=== PATIENT | male | born 1955 | race Two or more races ===

== ENCOUNTER 2020-05-27 16:27 | Inpatient (IN) | payer OTHER ==
[~2020-05-27] VITALS: Ht 154.9 cm; Wt 66.0 kg
[2020-05-27 17:58] LABS: Basophils # (auto) 0.1 10 ^3/uL (0-0.2); Basophils % (auto) 0.9 % (0.0-2.0); Eosinophils # (auto) 0.1 10 ^3/uL (0-0.8); Eosinophils % (auto) 2.2 % (0.0-7.0); Hematocrit 38.5 % (41.0-53.0); Hemoglobin 12.7 g/dL (13.5-17.5); Lymphocytes # (auto) 2.3 10 ^3/uL (0.4-5.4); Mean Corpuscular Hgb Conc. 32.9 g/dL (32.0-36.0); Mean Corpuscular Volume 88.2 fL (80.0-100.0); Monocytes # (auto) 0.6 10 ^3/uL (0-1.3); Neutrophils # (auto) 2.8 10 ^3/uL (1.6-8.6); Neutrophils % (auto) 46.9 % (37.0-80.0); Nucleated Red Blood Cells % 0.1 %; Platelet Count (auto) 170 10^3/uL (140-450); Red Blood Cells 4.36 10^6/uL (4.5-5.90); Red Cell Distribution Width 14.1 % (11.8-14.3); White Blood Cell 5.9 10^3/uL (4.4-10.8)
[2020-05-27] MEDS ORDERED: MORPHINE SULF INJ 2 MG/ML SYRINGE 1ML IV PRN (18:00)
[2020-05-27] MEDS ORDERED: ACETAMINOPHEN 325 MG TAB PO PRN (18:00)
[2020-05-27] MEDS ORDERED: LORazepam 0.5 MG TAB PO PRN (18:00)
[2020-05-27] MEDS ORDERED: DEXTROSE (50%) 50ML SYRG IV PRN (18:00)
[2020-05-27] MEDS ORDERED: ONDANSETRON HCL 4 MG/2 ML VIAL IV PRN (18:00)
[2020-05-27] MEDS ORDERED: DOCUSATE SOD 100 MG CAP PO PRN (18:00)
[2020-05-27 18:12] LABS: INR 0.96 (0.9-1.15); Partial Thromboplastin Time 25.9 sec (23.0-31.2)
[2020-05-27] MEDS ORDERED: MORPHINE SULF INJ 2 MG/ML SYRINGE 1ML IV ONE (18:15)
[2020-05-27] MEDS ORDERED: ONDANSETRON HCL 4 MG/2 ML VIAL IV ONE (18:15)
[2020-05-27 18:18] LABS: Alanine Aminotransferase 43 U/L (16-61); Albumin 4.2 g/dL (3.4-5.0); Anion Gap 5 (5-15); Aspartate Aminotransferase 26 U/L (15-37); BUN/Creatinine Ratio 25.5; Blood Urea Nitrogen 25 mg/dL (7-18); Calcium 8.8 mg/dL (8.5-10.1); Carbon Dioxide 27 mmol/L (21-32); Chloride 111 mmol/L (98-107); GFR African American 99 mL/min; GFR Non-African American 82 mL/min; Glucose 97 mg/dL (74-106); Sodium 143 mmol/L (136-145)
[2020-05-27 18:28] LABS: Alkaline Phosphatase 84 U/L (45-117); Bilirubin, Total 0.8 mg/dL (0.2-1.0); Total Protein 7.2 g/dL (6.4-8.2)
[2020-05-27 20:00] VITALS: BP 153/75
[2020-05-27] MEDS: ACCU-CHEK COMFORT CURVE STRIP VI SCH ×2 (20:00→23:06)
[2020-05-27] MEDS: InsuLIN REG 1unit/0.01ml Soln (100units/ml) SC SCH ×2 (20:00→23:06)
--- NOTE | 2020-05-27 20:00 | NUR ---
MS admit from [facility] admitted to tele/MS. Patient oriented to EVANGELINA HUBBARD, RN primary RN, unit, room, bed, and unit policies regarding patient care and visiting hours. Patient weighed by bedscale and encouraged to call if they need something. All questions and concerns addressed, patient verbalized understanding.
[2020-05-27 22:00] VITALS: BP 153/75
[2020-05-28] MEDS ORDERED: IOHEXOL 350 MG/ML 100ML IJ ONE (00:58)
[2020-05-28] MEDS ORDERED: LISI-646 PO (02:43)
[2020-05-28] MEDS ORDERED: METF-370 PO (02:44)
[2020-05-28] MEDS ORDERED: INFLUENZA QUAD 2020-2021 0.5 ML SYRG IM ONE (02:45)
[2020-05-28] MEDS ORDERED: SIMV-8 PO (02:45)
[2020-05-28] MEDS: ACCU-CHEK COMFORT CURVE STRIP VI SCH ×5 (04:00→19:50)
[2020-05-28] MEDS: InsuLIN REG 1unit/0.01ml Soln (100units/ml) SC SCH ×5 (04:00→19:51)
[2020-05-28 04:53] LABS: Urine Amorphous Crystal FEW /hpf (None Seen); Urine Bacteria FEW /hpf (None Seen); Urine Blood Negative /uL (Negative); Urine Mucus FEW (None Seen); Urine Specific Gravity 1.018 (1.001-1.035); Urine WBC <1 /hpf (0 - 3)
[2020-05-28 05:00] VITALS: BP 154/76
[2020-05-28 06:07] LABS: Basophils # (auto) 0 10 ^3/uL (0-0.2); Basophils % (auto) 0.6 % (0.0-2.0); Eosinophils # (auto) 0.1 10 ^3/uL (0-0.8); Hematocrit 39.4 % (41.0-53.0); Hemoglobin 12.8 g/dL (13.5-17.5); Lymphocytes # (auto) 2.5 10 ^3/uL (0.4-5.4); Lymphocytes % (auto) 42.1 % (10.0-50.0); Mean Corpuscular Hemoglobin 28.7 pg (28.0-32.0); Mean Corpuscular Hgb Conc. 32.5 g/dL (32.0-36.0); Mean Corpuscular Volume 88.4 fL (80.0-100.0); Monocytes # (auto) 0.6 10 ^3/uL (0-1.3); Neutrophils # (auto) 2.7 10 ^3/uL (1.6-8.6); Neutrophils % (auto) 45.3 % (37.0-80.0); Nucleated Red Blood Cells % 0.1 %; Platelet Count (auto) 157 10^3/uL (140-450); Red Blood Cells 4.46 10^6/uL (4.5-5.90); Red Cell Distribution Width 14.3 % (11.8-14.3)
[2020-05-28 06:42] LABS: Potassium 3.9 mmol/L (3.5-5.1)
[2020-05-28 07:19] LABS: BUN/Creatinine Ratio 27.4; Calcium 8.2 mg/dL (8.5-10.1)
--- NOTE | 2020-05-28 07:35 | NUR ---
Closing note Endorsed care to day shift RN. NO sob or distress noted.
[2020-05-28 09:00] VITALS: BP 159/76
[2020-05-28] MEDS: HYDROcodone-ACET 5/325MG TAB PO PRN (12:09)
[2020-05-28 13:00] VITALS: BP 145/86
[2020-05-28] MEDS ORDERED: VANCOMYCIN PER PHARMACY 0 MG IV SCH (15:30)
[2020-05-28] MEDS ORDERED: cefTRIAXone 1GM/50ML D5W 50 ML IV ONE (15:30)
[2020-05-28] MEDS: VANCOMYCIN 1GM/250ML 250 ML IV SCH (16:00)
[2020-05-28 17:00] VITALS: BP 136/76
--- NOTE | 2020-05-28 19:20 | NUR ---
Opening Shift Note Assumed care of patient, awake and alert. No S/S of distress/SOB or pain. Pt states that LLE is feeling better tonight and the pain medication helped. Safety measures in place, bed in lowest locked position, bed rails raised x2, call light within reach. All needs addressed at this time. Instructed on POC and to call for assist PRN, will continue to monitor for changes Q1hr and PRN.
--- NOTE | 2020-05-28 19:38 | NUR ---
PT AMBULATING WITHOUT DIFFICULTY DENIES ANY NEEDS. NO ADDITIONAL SWELLING TO LLE. EATING ET DRINKING WELL. VOIDING WITHOUT DIFFICULTY.
[2020-05-28 21:48] VITALS: BP 155/73
[2020-05-29] MEDS: ACCU-CHEK COMFORT CURVE STRIP VI SCH ×4 (00:12→12:00)
[2020-05-29] MEDS: InsuLIN REG 1unit/0.01ml Soln (100units/ml) SC SCH ×4 (04:00→12:00)
[2020-05-29] MEDS: HYDROcodone-ACET 5/325MG TAB PO PRN (04:00)
[2020-05-29] MEDS: VANCOMYCIN 1GM/250ML 250 ML IV SCH (04:00)
[2020-05-29 05:00] VITALS: BP 150/72
[2020-05-29 06:52] VITALS: BP 138/79
[2020-05-29 07:22] LABS: Partial Thromboplastin Time 26.5 sec (23.0-31.2)
[2020-05-29 07:34] LABS: Albumin 3.6 g/dL (3.4-5.0); BUN/Creatinine Ratio 20.2; Bilirubin, Total 0.8 mg/dL (0.2-1.0); CRP High Sensitivity 0.12 mg/dL (< 0.3); Calcium 8.4 mg/dL (8.5-10.1); Potassium 4.1 mmol/L (3.5-5.1); Total Protein 6.7 g/dL (6.4-8.2)
[2020-05-29 08:00] VITALS: BP 145/72
[2020-05-29] MEDS ORDERED: cefTRIAXone 1GM/50ML D5W 50 ML IV SCH (09:00)
[2020-05-29 12:00] VITALS: BP 146/70
[2020-05-29] MEDS ORDERED: CEPH-37 PO (15:19)
[2020-05-29] MEDS ORDERED: IBUP600T27 PO (15:19)
[2020-05-29 17:00] VITALS: BP 142/69
--- NOTE | 2020-05-29 18:34 | NUR ---
Discharge instructions given as ordered. Encourage to follow up with PMD as instructed. All questions and concerns addressed. Patient verbalized understanding. Medication reconciliation form completed and copy given to patient. IV removed with catheter intact, pressure dressing applied, Patient taken to vehicle via wheelchair with all personal belongings, accompanied by staff and family member. No distress noted at time of departure.
== END 2020-05-29 17:40 | disposition home or self-care (01) | DRG 603 ==
LOC: ER 16:32 → OVERFLOW 16:33 → WEST WING 20:04
PROVIDERS: ADMIT Hospitalist; ATTEND Hospitalist
DX: L03.116 Cellulitis of left lower limb (principal); E11.65 Type 2 diabetes mellitus with hyperglycemia; E66.9 Obesity, unspecified; I10 Essential (primary) hypertension; Z68.27 Body mass index [BMI] 27.0-27.9, adult; Z79.899 Other long term (current) drug therapy
CPT/HCPCS: 36415; 71045; 73502; 73562; 75635; 80048; 80053; 80061; 81001; 82962; 83036; 83880; 84484; 85025; 85610; 85730; 86141; 93926; 93971; 97116; 97163; 97530; G0378; J0696

== ENCOUNTER 2021-02-09 13:52 | Inpatient (IN) | payer OTHER ==
[~2021-02-09] VITALS: Ht 162.6 cm; Wt 66.5 kg
[~2021-02-09 13:52] MED LIST: CEPH-37 PO; IBUP600T27 PO; LISI20TA28 PO; METF-370 PO; SIMV-8 PO
[2021-02-09 15:09] LABS: Basophils # (auto) 0 10 ^3/uL (0-0.2); Basophils % (auto) 0.2 % (0.0-2.0); Eosinophils # (auto) 0 10 ^3/uL (0-0.8); Eosinophils % (auto) 0.2 % (0.0-7.0); Hematocrit 44.9 % (41.0-53.0); Hemoglobin 14.8 g/dL (13.5-17.5); Lymphocytes # (auto) 2.2 10 ^3/uL (0.4-5.4); Mean Corpuscular Hemoglobin 29.4 pg (28.0-32.0); Mean Corpuscular Volume 89.3 fL (80.0-100.0); Monocytes # (auto) 1.4 10 ^3/uL (0-1.3); Neutrophils % (auto) 73.6 % (37.0-80.0); Red Blood Cells 5.03 10^6/uL (4.5-5.90); Red Cell Distribution Width 13.6 % (11.8-14.3); White Blood Cell 13.7 10^3/uL (4.4-10.8)
[2021-02-09 15:32] LABS: Albumin 3.2 g/dL (3.4-5.0); Anion Gap 7 (5-15); Blood Urea Nitrogen 34 mg/dL (7-18); Calcium 8.3 mg/dL (8.5-10.1); Carbon Dioxide 28 mmol/L (21-32); Chloride 102 mmol/L (98-107); Glucose 118 mg/dL (74-106); Lipase 89 U/L (73-393); Magnesium 2.3 mg/dL (1.6-2.6); Potassium 4.2 mmol/L (3.5-5.1); Sodium 137 mmol/L (136-145)
[2021-02-09 15:34] LABS: BUN/Creatinine Ratio 26.6; GFR African American 72 mL/min; GFR Non-African American 60 mL/min
[2021-02-09 15:39] LABS: Alanine Aminotransferase 45 U/L (16-61); Alkaline Phosphatase 71 U/L (45-117); Aspartate Aminotransferase 9 U/L (15-37); Bilirubin, Total 0.7 mg/dL (0.2-1.0); Total Protein 7.3 g/dL (6.4-8.2)
[2021-02-09 18:08] LABS: Urine Bacteria NONE SEEN /hpf (None Seen); Urine Blood Negative /uL (Negative); Urine Mucus FEW (None Seen); Urine WBC <1 /hpf (0 - 3)
[2021-02-09] MEDS ORDERED: ACETAMINOPHEN 325 MG TAB PO ONE (18:45)
[2021-02-09] MEDS ORDERED: SODIUM CHLORIDE 0.9% 1,000 ML IV ONE (19:00)
[2021-02-09] MEDS ORDERED: SODIUM CHLORIDE 0.9% 1,950 ML IV ONE (19:00)
[2021-02-09] MEDS ORDERED: IOHEXOL 300 MG/ML 100ML BOTTLE IJ ONE (19:05)
[2021-02-09] MEDS: PIPERACILLIN-TAZO 4.5GM 100 ML IV SCH (21:26)
[2021-02-09] MEDS ORDERED: DEXTROSE (50%) 50ML SYRG IV PRN (22:45)
[2021-02-09] MEDS ORDERED: HYDROcodone-ACET 5/325MG TAB PO PRN (22:45)
[2021-02-09] MEDS ORDERED: MORPHINE SULFATE 4 MG/ML SYR/VIAL IV PRN (22:45)
[2021-02-09] MEDS ORDERED: ONDANSETRON HCL 4 MG/2 ML VIAL IV PRN (22:45)
[2021-02-09] MEDS ORDERED: NITROGLYCERIN 0.4 MG SL TAB SL PRN (22:45)
[2021-02-09] MEDS ORDERED: ACETAMINOPHEN 325 MG TAB PO PRN (22:45)
[2021-02-09] MEDS ORDERED: TEMAZEPAM 15 MG CAP PO PRN (22:45)
[2021-02-10] MEDS: SODIUM CHLORIDE 0.9% 1,000 ML IV SCH ×2 (00:33→15:25)
[2021-02-10 01:00] VITALS: BP 158/67
[2021-02-10] MEDS: PIPERACILLIN-TAZO 4.5GM 100 ML IV SCH ×3 (04:49→18:29)
[2021-02-10 05:00] VITALS: BP 154/71
[2021-02-10] MEDS: InsuLIN REG 1unit/0.01ml Soln (100units/ml) SC SCH ×4 (06:35→21:18)
[2021-02-10] MEDS: ACCU-CHEK COMFORT CURVE STRIP VI SCH ×4 (06:36→21:06)
[2021-02-10 07:32] LABS: Basophils # (auto) 0 10 ^3/uL (0-0.2); Basophils % (auto) 0.3 % (0.0-2.0); Eosinophils # (auto) 0 10 ^3/uL (0-0.8); Eosinophils % (auto) 0.4 % (0.0-7.0); Hematocrit 37.6 % (41.0-53.0); Hemoglobin 12.7 g/dL (13.5-17.5); Lymphocytes # (auto) 1.6 10 ^3/uL (0.4-5.4); Lymphocytes % (auto) 14.2 % (10.0-50.0); Mean Corpuscular Hemoglobin 29.9 pg (28.0-32.0); Mean Corpuscular Hgb Conc. 33.7 g/dL (32.0-36.0); Mean Corpuscular Volume 88.6 fL (80.0-100.0); Monocytes % (auto) 8.7 % (0.0-12.0); Neutrophils # (auto) 8.4 10 ^3/uL (1.6-8.6); Neutrophils % (auto) 76.4 % (37.0-80.0); Red Blood Cells 4.24 10^6/uL (4.5-5.90); Red Cell Distribution Width 13.5 % (11.8-14.3)
[2021-02-10 07:42] LABS: Albumin 2.4 g/dL (3.4-5.0); Calcium 7.7 mg/dL (8.5-10.1); Potassium 3.9 mmol/L (3.5-5.1)
[2021-02-10 07:47] LABS: BUN/Creatinine Ratio 24.2; Bilirubin, Total 0.8 mg/dL (0.2-1.0); Total Protein 5.9 g/dL (6.4-8.2)
[2021-02-10 09:00] VITALS: BP 146/75
[2021-02-10] MEDS: FAMOTIDINE (10MG/ML) 2ML VL IV SCH ×2 (10:54→21:06)
[2021-02-10 13:00] VITALS: BP 155/78
[2021-02-10 17:00] VITALS: BP 154/76
[2021-02-10 22:00] VITALS: BP 149/63
[2021-02-11] MEDS: PIPERACILLIN-TAZO 4.5GM 100 ML IV SCH ×2 (02:41→11:05)
[2021-02-11 05:00] VITALS: BP 155/75
[2021-02-11] MEDS: InsuLIN REG 1unit/0.01ml Soln (100units/ml) SC SCH ×2 (06:36→11:17)
[2021-02-11] MEDS: ACCU-CHEK COMFORT CURVE STRIP VI SCH ×2 (06:37→11:17)
[2021-02-11 06:47] LABS: Basophils # (auto) 0 10 ^3/uL (0-0.2); Basophils % (auto) 0.3 % (0.0-2.0); Eosinophils # (auto) 0.1 10 ^3/uL (0-0.8); Eosinophils % (auto) 1.5 % (0.0-7.0); Hematocrit 37.3 % (41.0-53.0); Hemoglobin 12.4 g/dL (13.5-17.5); Lymphocytes # (auto) 2.1 10 ^3/uL (0.4-5.4); Lymphocytes % (auto) 24.8 % (10.0-50.0); Mean Corpuscular Hemoglobin 29.7 pg (28.0-32.0); Mean Corpuscular Hgb Conc. 33.3 g/dL (32.0-36.0); Mean Corpuscular Volume 89.4 fL (80.0-100.0); Monocytes # (auto) 0.7 10 ^3/uL (0-1.3); Monocytes % (auto) 8.1 % (0.0-12.0); Neutrophils # (auto) 5.6 10 ^3/uL (1.6-8.6); Neutrophils % (auto) 65.3 % (37.0-80.0); Red Blood Cells 4.17 10^6/uL (4.5-5.90); Red Cell Distribution Width 13.3 % (11.8-14.3); White Blood Cell 8.6 10^3/uL (4.4-10.8)
[2021-02-11 07:10] LABS: Albumin 2.3 g/dL (3.4-5.0); BUN/Creatinine Ratio 12.2; Calcium 8.2 mg/dL (8.5-10.1); Potassium 4.1 mmol/L (3.5-5.1)
[2021-02-11 07:13] LABS: Bilirubin, Total 0.6 mg/dL (0.2-1.0); Total Protein 5.9 g/dL (6.4-8.2)
[2021-02-11 09:07] VITALS: BP 154/71
[2021-02-11] MEDS: SODIUM CHLORIDE 0.9% 1,000 ML IV SCH (09:18)
[2021-02-11] MEDS: FAMOTIDINE (10MG/ML) 2ML VL IV SCH (09:18)
[2021-02-11 10:00] LABS: Hepatitis B Surface Antibody Negative
[2021-02-11 10:39] LABS: Hepatitis A Total Antibody Positive
[2021-02-11 13:00] VITALS: BP 162/79
[2021-02-11] MEDS ORDERED: GADOTERATE MEG 10 MMOL/20ml INJ (0.5MMOL/ml) IV ONE (14:00)
[2021-02-11 14:12] VITALS: BP 162/79
[2021-02-11 14:54] LABS: Hepatitis B Core Total AB Negative; Hepatitis B Surface Antigen Negative (Negative); Hepatitis C Antibody Negative (Negative)
[2021-02-11 17:02] VITALS: BP 149/70
== END 2021-02-11 17:10 | disposition home or self-care (01) | DRG 392 ==
LOC: ER 13:52 → OVERFLOW 22:40 → WEST WING 23:26
PROVIDERS: ADMIT Nurse Practitioner Family; ATTEND Internal Medicine
DX: A09 Infectious gastroenteritis and colitis, unspecified (principal); E11.9 Type 2 diabetes mellitus without complications; I10 Essential (primary) hypertension; N28.1 Cyst of kidney, acquired; N43.3 Hydrocele, unspecified; Z83.3 Family history of diabetes mellitus; Z90.49 Acquired absence of other specified parts of digestive tract
CPT/HCPCS: 36415; 74177; 74183; 76700; 80053; 81001; 82105; 82378; 82962; 83036; 83605; 83690; 83735; 84484; 85025; 86704; 86706; 86708; 86803; 87040; 87340; 87426; 93005; 96360; 99291; G0378; J2543; J3490

== ENCOUNTER 2021-03-24 11:33 | Emergency (ER) | payer OTHER ==
[~2021-03-24] VITALS: Ht 167.6 cm; Wt 65.8 kg
[~2021-03-24 11:33] MED LIST changes: -IBUP600T27 PO
[2021-03-24 12:13] VITALS: BP 182/67
[2021-03-24] MEDS ORDERED: FLUORESCEIN SOD OPTH TEST STRIP LEFTEYE ONE (12:30)
[2021-03-24] MEDS ORDERED: TETRACAINE HCL 0.5% OPTH(EYE) SOLN 4ML LEFTEYE ONE (12:30)
== END 2021-03-24 13:23 | disposition home or self-care (01) ==
LOC: ER 11:33
DX: S05.02XA Injury of conjunctiva and corneal abrasion without foreign body, left eye, initial encounter (principal); E11.9 Type 2 diabetes mellitus without complications; I10 Essential (primary) hypertension; X58.XXXA Exposure to other specified factors, initial encounter; Y93.89 Activity, other specified; Y92.89 Other specified places as the place of occurrence of the external cause; Y99.8 Other external cause status

== ENCOUNTER 2021-06-18 08:51 | Emergency (ER) | payer OTHER ==
[~2021-06-18] VITALS: Ht 154.9 cm; Wt 68.9 kg
[2021-06-18] MEDS ORDERED: cloNIDine HCL 0.1 MG TAB ONE (08:54)
[2021-06-18] MEDS ORDERED: cloNIDine HCL 0.1 MG TAB PO ONE (09:00)
[2021-06-18 10:40] VITALS: BP 104/59
[2021-06-18] MEDS ORDERED: ACETAMINOPHEN/CODEINE#3 (300/30mg) TAB PO ONE (10:45)
[2021-06-18] MEDS ORDERED: ONDANSETRON ODT 4 MG TAB PO ONE (10:45)
== END 2021-06-18 11:46 | disposition home or self-care (01) ==
LOC: ER 08:51
DX: S20.212A Contusion of left front wall of thorax, initial encounter (principal); I10 Essential (primary) hypertension; E11.9 Type 2 diabetes mellitus without complications; Z90.49 Acquired absence of other specified parts of digestive tract; Z79.899 Other long term (current) drug therapy; W01.0XXA Fall on same level from slipping, tripping and stumbling without subsequent striking against object, initial encounter; Y93.89 Activity, other specified; Y92.89 Other specified places as the place of occurrence of the external cause; Y99.8 Other external cause status
CPT/HCPCS: 71101; 71250; 99284; Q0162

== ENCOUNTER 2022-08-14 21:07 | Inpatient (IN) | payer OTHER ==
[~2022-08-14] VITALS: Ht 170.2 cm; Wt 69.5 kg
[2022-08-14] MEDS ORDERED: SODIUM CHLORIDE 0.9% 1,000 ML IV ONE (22:00)
[2022-08-14 22:16] LABS: Basophils # (auto) 0.1 10 ^3/uL (0-0.2); Hematocrit 40.7 % (41.0-53.0); Mean Corpuscular Volume 83.1 fL (80.0-100.0); Monocytes # (auto) 0.9 10 ^3/uL (0-1.3); White Blood Cell 13.2 10^3/uL (4.4-10.8)
[2022-08-14 22:17] LABS: Basophils % (auto) 0.5 % (0.0-2.0); Eosinophils # (auto) 0.1 10 ^3/uL (0-0.8); Eosinophils % (auto) 0.5 % (0.0-7.0); Lymphocytes # (auto) 1.2 10 ^3/uL (0.4-5.4); Lymphocytes % (auto) 9.2 % (10.0-50.0); Mean Corpuscular Hemoglobin 26.6 pg (28.0-32.0); Monocytes % (auto) 6.7 % (0.0-12.0); Neutrophils % (auto) 83.1 % (37.0-80.0); Red Cell Distribution Width 16.3 % (11.8-14.3)
[2022-08-14 22:39] LABS: INR 0.93 (0.9-1.15); Partial Thromboplastin Time 22.1 sec (24.6-33.4)
[2022-08-14] MEDS ORDERED: PIPERACILLIN-TAZOB 3.375GM 100 ML IV ONE (22:45)
[2022-08-14 22:55] LABS: Albumin 3.8 g/dL (3.4-5.0); BUN/Creatinine Ratio 25.8; Calcium 8.7 mg/dL (8.5-10.1); Potassium 4.6 mmol/L (3.5-5.1)
[2022-08-14 22:58] LABS: Bilirubin, Total 0.5 mg/dL (0.2-1.0); Total Protein 7.4 g/dL (6.4-8.2)
[2022-08-14 23:58] LABS: Urine Bacteria FEW /hpf (None Seen); Urine Blood Negative /uL (Negative); Urine Mucus FEW (None Seen); Urine Specific Gravity 1.026 (1.001-1.035); Urine WBC 1 /hpf (0 - 3)
[2022-08-15 00:11] LABS: Alcohol, Urine < 3.0 mg/dL (0-10); Amphetamine Screen, Urine NEGATIVE (NEGATIVE); Barbiturate Scree,Urine NEGATIVE (NEGATIVE); Benzodiazephine Screen, Urine NEGATIVE (NEGATIVE); Cannabinoid Screen, Urine NEGATIVE (NEGATIVE); Cocaine Screen, Urine NEGATIVE (NEGATIVE); Opiate Scree,Urine NEGATIVE (NEGATIVE); Phencyclidine Screen, Urine NEGATIVE (NEGATIVE)
[2022-08-15] MEDS ORDERED: ONDANSETRON HCL 4 MG/2 ML VIAL IV PRN (02:00)
[2022-08-15] MEDS ORDERED: ACETAMINOPHEN 325 MG TAB PO PRN (02:00)
[2022-08-15] MEDS ORDERED: DEXTROSE (50%) 50ML SYRG IV PRN (02:00)
[2022-08-15] MEDS ORDERED: DOCUSATE SOD 100 MG CAP PO PRN (02:00)
[2022-08-15] MEDS ORDERED: HYDROcodone-ACET 5/325MG TAB PO PRN (02:00)
[2022-08-15] MEDS ORDERED: hydrALAZINE HCL 20 MG/ML VL IV PRN (02:00)
[2022-08-15] MEDS ORDERED: MORPHINE SULFATE INJ 2 MG/ml SYRG IV PRN (04:00)
[2022-08-15] MEDS ORDERED: NITROGLYCERIN 0.4 MG SL TAB SL PRN (04:00)
[2022-08-15 05:31] LABS: Eosinophils # (auto) 0 10 ^3/uL (0-0.8); Eosinophils % (auto) 0.4 % (0.0-7.0); Hemoglobin 12.4 g/dL (13.5-17.5); Red Cell Distribution Width 16.1 % (11.8-14.3)
[2022-08-15 05:33] LABS: Basophils # (auto) 0 10 ^3/uL (0-0.2); Basophils % (auto) 0.5 % (0.0-2.0); Hematocrit 38.2 % (41.0-53.0); Lymphocytes # (auto) 1.1 10 ^3/uL (0.4-5.4); Mean Corpuscular Hemoglobin 26.8 pg (28.0-32.0); Mean Corpuscular Hgb Conc. 32.5 g/dL (32.0-36.0); Mean Corpuscular Volume 82.5 fL (80.0-100.0); Monocytes # (auto) 0.7 10 ^3/uL (0-1.3); Monocytes % (auto) 8.2 % (0.0-12.0); Neutrophils # (auto) 6.8 10 ^3/uL (1.6-8.6); Neutrophils % (auto) 77.9 % (37.0-80.0); Red Blood Cells 4.64 10^6/uL (4.5-5.90); White Blood Cell 8.7 10^3/uL (4.4-10.8)
[2022-08-15 05:49] LABS: Albumin 3.3 g/dL (3.4-5.0); Calcium 7.6 mg/dL (8.5-10.1); Potassium 3.6 mmol/L (3.5-5.1)
[2022-08-15 05:53] LABS: BUN/Creatinine Ratio 31.3; Bilirubin, Total 0.7 mg/dL (0.2-1.0); Total Protein 6.2 g/dL (6.4-8.2)
[2022-08-15] MEDS: SODIUM CHLOR 0.9% PF (SALINE LOCK) 10ML VIAL/SYR IV SCH ×3 (06:15→22:00)
[2022-08-15] MEDS: InsuLIN REG 1unit/0.01ml Soln (100units/ml) SC SCH ×4 (06:51→22:00)
[2022-08-15] MEDS: ACCU-CHEK COMFORT CURVE STRIP VI SCH ×4 (07:01→22:00)
[2022-08-15] MEDS: cefTRIAXone 1GM/50ML D5W 50 ML IV SCH (09:33)
[2022-08-15] MEDS: amLODIPine BESYLATE 5 MG TAB PO SCH (13:10)
[2022-08-15] MEDS: ASPirin 81 mg TAB PO SCH (13:11)
[2022-08-15] MEDS: CARVEDILOL 12.5 MG TAB PO SCH ×2 (13:11→22:01)
[2022-08-15] MEDS: LISINOPRIL 20 MG TAB PO SCH (13:11)
[2022-08-15] MEDS ORDERED: CAR125T PO (14:09)
[2022-08-15] MEDS: SODIUM CHLORIDE 0.9% 1,000 ML IV SCH (17:15)
[2022-08-15 22:00] VITALS: BP 106/58
[2022-08-15] MEDS: ATORVASTATIN 20 MG TAB PO SCH (22:00)
[2022-08-16] MEDS: SODIUM CHLORIDE 0.9% 1,000 ML IV SCH ×2 (03:15→12:18)
[2022-08-16 05:00] VITALS: BP 108/50
[2022-08-16] MEDS: SODIUM CHLOR 0.9% PF (SALINE LOCK) 10ML VIAL/SYR IV SCH ×3 (05:13→22:10)
[2022-08-16] MEDS: InsuLIN REG 1unit/0.01ml Soln (100units/ml) SC SCH ×4 (05:13→22:00)
[2022-08-16] MEDS: ACCU-CHEK COMFORT CURVE STRIP VI SCH ×4 (05:13→22:10)
[2022-08-16 05:39] LABS: Basophils # (auto) 0 10 ^3/uL (0-0.2); Eosinophils # (auto) 0.1 10 ^3/uL (0-0.8); Lymphocytes # (auto) 1.7 10 ^3/uL (0.4-5.4); Monocytes # (auto) 0.6 10 ^3/uL (0-1.3); Monocytes % (auto) 12.8 % (0.0-12.0); Neutrophils # (auto) 2.5 10 ^3/uL (1.6-8.6)
[2022-08-16 05:42] LABS: Basophils % (auto) 0.5 % (0.0-2.0); Eosinophils % (auto) 2.4 % (0.0-7.0); Hematocrit 34.1 % (41.0-53.0); Hemoglobin 10.8 g/dL (13.5-17.5); Lymphocytes % (auto) 34.2 % (10.0-50.0); Mean Corpuscular Hemoglobin 26.7 pg (28.0-32.0); Mean Corpuscular Hgb Conc. 31.7 g/dL (32.0-36.0); Mean Corpuscular Volume 84.3 fL (80.0-100.0); Neutrophils % (auto) 50.1 % (37.0-80.0); Nucleated Red Blood Cells % 0.1 %; Red Blood Cells 4.05 10^6/uL (4.5-5.90); Red Cell Distribution Width 16.3 % (11.8-14.3)
[2022-08-16 05:54] LABS: Albumin 2.9 g/dL (3.4-5.0); Calcium 7.7 mg/dL (8.5-10.1); Potassium 4.1 mmol/L (3.5-5.1)
[2022-08-16 05:59] LABS: Bilirubin, Total 0.5 mg/dL (0.2-1.0); Total Protein 5.3 g/dL (6.4-8.2)
[2022-08-16 09:00] VITALS: BP 137/57
[2022-08-16] MEDS: ASPirin 81 mg TAB PO SCH (10:00)
[2022-08-16] MEDS: amLODIPine BESYLATE 5 MG TAB PO SCH (10:01)
[2022-08-16] MEDS: CARVEDILOL 12.5 MG TAB PO SCH ×2 (10:01→22:11)
[2022-08-16] MEDS: LISINOPRIL 20 MG TAB PO SCH (10:02)
[2022-08-16] MEDS: cefTRIAXone 1GM/50ML D5W 50 ML IV SCH (10:02)
[2022-08-16] MEDS ORDERED: POLYETHYLENE GLYCOL 17 GM PWDR PO ONE (10:15)
[2022-08-16 13:00] VITALS: BP 159/62
[2022-08-16 17:00] VITALS: BP 134/53
[2022-08-16 21:24] VITALS: BP 156/56
[2022-08-16 22:00] VITALS: BP 156/56
[2022-08-16] MEDS: ATORVASTATIN 20 MG TAB PO SCH (22:11)
== END 2022-08-16 23:00 | disposition home or self-care (01) | DRG 312 ==
LOC: EDBD 21:07 → EDUNIT# 21:07 → ER 21:07 → TELE 08-15 04:00 → TELE-WESTW 08-15 20:02
PROVIDERS: ADMIT Nurse Practitioner Family; ATTEND Internal Medicine
DX: R55 Syncope and collapse (principal); E86.0 Dehydration; D72.829 Elevated white blood cell count, unspecified; E11.65 Type 2 diabetes mellitus with hyperglycemia; I16.0 Hypertensive urgency; E78.5 Hyperlipidemia, unspecified; I10 Essential (primary) hypertension; K29.70 Gastritis, unspecified, without bleeding; R79.89 Other specified abnormal findings of blood chemistry; Z20.822 Contact with and (suspected) exposure to COVID-19; Z83.3 Family history of diabetes mellitus
CPT/HCPCS: 36415; 70450; 70551; 71250; 74176; 80053; 80307; 80320; 81001; 82962; 83036; 83605; 83690; 83880; 84484; 85025; 85379; 85610; 85730; 87040; 87426; 87804; 93005; 93306; 95819; 96361; 96365; 96366; 96375; G0378; J0696; J1815; J2405; J2543

== ENCOUNTER 2023-07-24 18:36 | Emergency (ER) | payer OTHER ==
[~2023-07-24] VITALS: Ht 165.1 cm; Wt 69.5 kg
[~2023-07-24 18:36] MED LIST changes: +CAR125T PO; -CEPH-37 PO; -LISI20TA28 PO; +LISI20TA56 PO; -SIMV-8 PO; +SIMV20TA20 PO
[2023-07-24] MEDS ORDERED: cloNIDine HCL 0.1 MG TAB PO ONE (19:00)
[2023-07-24 19:03] LABS: Urine Epithelial Cast None Seen /hpf (<5)
[2023-07-24 19:21] LABS: Urine Bacteria NONE SEEN /hpf (None Seen); Urine Blood Negative /uL (Negative); Urine Clarity Clear (Clear); Urine Color Colorless (Yellow); Urine Mucus FEW (None Seen); Urine Protein, UAD Negative (Negative); Urine Specific Gravity 1.018 (1.001-1.035); Urine Urobilinogen Normal (Negative); Urine WBC 1 /hpf (0 - 3); Urine pH 5.5 (5.0-8.0)
[2023-07-24 19:32] LABS: Basophils # (auto) 0.1 10 ^3/uL (0-0.2); Basophils % (auto) 0.6 % (0.0-2.0); Eosinophils # (auto) 0 10 ^3/uL (0-0.8); Eosinophils % (auto) 0.2 % (0.0-7.0); Hematocrit 31.7 % (41.0-53.0); Hemoglobin 9.3 g/dL (13.5-17.5); Lymphocytes # (auto) 1.2 10 ^3/uL (0.4-5.4); Lymphocytes % (auto) 15.1 % (10.0-50.0); Mean Corpuscular Hemoglobin 21.9 pg (28.0-32.0); Mean Corpuscular Hgb Conc. 29.5 g/dL (32.0-36.0); Mean Corpuscular Volume 74.3 fL (80.0-100.0); Monocytes # (auto) 0.5 10 ^3/uL (0-1.3); Monocytes % (auto) 6.4 % (0.0-12.0); Neutrophils # (auto) 6.2 10 ^3/uL (1.6-8.6); Neutrophils % (auto) 77.7 % (37.0-80.0); Nucleated Red Blood Cells % 0.1 %; Red Blood Cells 4.26 10^6/uL (4.5-5.90); Red Cell Distribution Width 19.4 % (11.8-14.3)
[2023-07-24 19:49] LABS: Alanine Aminotransferase 34 U/L (7-40); Albumin 4.5 g/dL (3.2-4.8); Alkaline Phosphatase 70 U/L (46-116); Anion Gap 10 (5-15); Aspartate Aminotransferase 19 U/L (13-40); BUN/Creatinine Ratio 17.1 (10.0-20.0); Blood Urea Nitrogen 22 mg/dL (9-23); Calcium 9.2 mg/dL (8.7-10.4); Carbon Dioxide 21 mmol/L (20-30); Chloride 110 mmol/L (98-107); Glucose 153 mg/dL (74-106); Lipase 52 U/L (12-53); Potassium 4.5 mmol/L (3.5-5.1); Sodium 141 mmol/L (136-145)
[2023-07-24 19:50] LABS: Bilirubin, Total 0.4 mg/dL (0.2-1.0); Total Protein 6.7 g/dL (5.7-8.2)
[2023-07-24] MEDS ORDERED: METR-344 PO (20:13)
[2023-07-25 01:06] VITALS: TEMP 97.5; O2SAT 97
[2023-07-25] MEDS ORDERED: HYDROcodone-ACET 5/325MG TAB PO ONE (01:15)
[2023-07-25] MEDS ORDERED: IBUPROFEN 600 MG TAB PO ONE (01:15)
[2023-07-25 02:49] VITALS: BP 173/60
[2023-07-25 02:50] VITALS: PULSE 60; RESP 18
== END 2023-07-25 02:56 | disposition home or self-care (01) ==
LOC: ER 18:36
DX: K52.9 Noninfective gastroenteritis and colitis, unspecified (principal); E11.9 Type 2 diabetes mellitus without complications; K21.9 Gastro-esophageal reflux disease without esophagitis; I10 Essential (primary) hypertension
CPT/HCPCS: 36415; 74176; 80053; 81001; 83690; 85025

== ENCOUNTER 2023-09-10 09:36 | Inpatient (IN) | payer OTHER ==
[~2023-09-10] VITALS: Ht 154.9 cm; Wt 69.7 kg
[~2023-09-10 09:36] MED LIST changes: +METR-344 PO
[2023-09-10] MEDS: cloNIDine HCL 0.1 MG TAB PO ONE (09:52)
[2023-09-10 10:22] LABS: Basophils # (auto) 0 10 ^3/uL (0-0.2); Basophils % (auto) 0.3 % (0.0-2.0); Eosinophils # (auto) 0 10 ^3/uL (0-0.8); Eosinophils % (auto) 0.2 % (0.0-7.0); Hematocrit 29.4 % (41.0-53.0); Hemoglobin 8.6 g/dL (13.5-17.5); Lymphocytes # (auto) 2.5 10 ^3/uL (0.4-5.4); Lymphocytes % (auto) 26.8 % (10.0-50.0); Mean Corpuscular Hemoglobin 20.9 pg (28.0-32.0); Mean Corpuscular Hgb Conc. 29.1 g/dL (32.0-36.0); Mean Corpuscular Volume 71.8 fL (80.0-100.0); Monocytes # (auto) 0.8 10 ^3/uL (0-1.3); Monocytes % (auto) 8.4 % (0.0-12.0); Neutrophils % (auto) 64.3 % (37.0-80.0); Nucleated Red Blood Cells % 0.2 %; Red Cell Distribution Width 18.9 % (11.8-14.3); White Blood Cell 9.4 10^3/uL (4.4-10.8)
[2023-09-10 10:43] LABS: Urine Bacteria NONE SEEN /hpf (None Seen); Urine Blood Negative /uL (Negative); Urine Clarity Clear (Clear); Urine Color Yellow (Yellow); Urine Mucus FEW (None Seen); Urine Protein, UAD 1+ (Negative); Urine Specific Gravity 1.034 (1.001-1.035); Urine WBC 2 /hpf (0 - 3); Urine pH 5.5 (5.0-8.0)
[2023-09-10 10:43] LABS: Alanine Aminotransferase 24 U/L (7-40); Albumin 4.3 g/dL (3.2-4.8); Alkaline Phosphatase 66 U/L (46-116); Anion Gap 7 (5-15); Aspartate Aminotransferase 14 U/L (13-40); BUN/Creatinine Ratio 22.9 (10.0-20.0); Bilirubin, Total 0.4 mg/dL (0.2-1.0); Blood Urea Nitrogen 27 mg/dL (9-23); Calcium 9.3 mg/dL (8.7-10.4); Carbon Dioxide 23 mmol/L (20-30); Chloride 111 mmol/L (98-107); Glucose 119 mg/dL (74-106); Lipase 39 U/L (12-53); Potassium 3.4 mmol/L (3.5-5.1); Sodium 141 mmol/L (136-145); Total Protein 6.8 g/dL (5.7-8.2)
[2023-09-10 10:53] LABS: Partial Thromboplastin Time 24.8 SEC (24.5-34.5); Prothrombin Time 10.5 sec (9.3-11.8)
[2023-09-10] MEDS: PANTOPRAZOLE 40 MG/10 ML VIAL INJ IV ONE (12:33)
[2023-09-10 12:45] VITALS: PULSE 56; RESP 12; O2SAT 99
[2023-09-10] MEDS ORDERED: DEXTROSE (50%) 50ML SYRG IV PRN (17:45)
[2023-09-10] MEDS: ACCU-CHEK COMFORT CURVE STRIP VI SCH (17:55)
[2023-09-10] MEDS: InsuLIN REG 1unit/0.01ml Soln (100units/ml) SC SCH (17:56)
[2023-09-10] MEDS: SODIUM CHLORIDE 0.9% 1,000 ML IV SCH (18:00)
[2023-09-10] MEDS: POTASSIUM CHL 20 Meq TABLET PO ONE (18:01)
[2023-09-10] MEDS: hydrALAZINE HCL 20 MG/ML VL IV PRN (18:02)
[2023-09-10 18:46] LABS: Basophils # (auto) 0 10 ^3/uL (0-0.2); Hemoglobin 7.9 g/dL (13.5-17.5); Monocytes # (auto) 0.6 10 ^3/uL (0-1.3)
[2023-09-10 18:48] LABS: Basophils % (auto) 0.5 % (0.0-2.0); Eosinophils # (auto) 0.1 10 ^3/uL (0-0.8); Eosinophils % (auto) 0.7 % (0.0-7.0); Hematocrit 27.2 % (41.0-53.0); Lymphocytes % (auto) 38.1 % (10.0-50.0); Mean Corpuscular Hemoglobin 20.5 pg (28.0-32.0); Mean Corpuscular Hgb Conc. 29.1 g/dL (32.0-36.0); Mean Corpuscular Volume 70.7 fL (80.0-100.0); Monocytes % (auto) 7.8 % (0.0-12.0); Neutrophils # (auto) 4.1 10 ^3/uL (1.6-8.6); Neutrophils % (auto) 52.9 % (37.0-80.0); Nucleated Red Blood Cells % 0.2 %; Red Blood Cells 3.85 10^6/uL (4.5-5.90); Red Cell Distribution Width 18.6 % (11.8-14.3); White Blood Cell 7.8 10^3/uL (4.4-10.8)
[2023-09-10] MEDS: GOLYTELY 4L KIT PO ONE (19:06)
[2023-09-10 19:30] VITALS: PULSE 68; RESP 16; O2SAT 98
[2023-09-10] MEDS: CARVEDILOL 12.5 MG TAB PO SCH (21:10)
[2023-09-10 22:46] VITALS: BP 176/80; PULSE 75; RESP 16; RESP 17; TEMP 97.7; TEMP 98.3; O2SAT 97
[2023-09-11] VITALS (11 sets, daily range): BP systolic 122–181; BP diastolic 54–77; PULSE 55–78; RESP 14–18; TEMP 97.5–98.3; O2SAT 96–100
[2023-09-11] MEDS: METOPROLOL TARTRATE 1MG/1ML-5ML VIAL IV PRN (02:35)
[2023-09-11] MEDS ORDERED: ENALAPRILAT 1.25 MG/ML-1ML VIAL IV PRN (03:15)
[2023-09-11] MEDS: MAGNESIUM CITRATE SOLUTION 300 ML BTL PO ONE (07:57)
[2023-09-11] MEDS: LISINOPRIL 20 MG TAB PO SCH (10:00)
[2023-09-11 10:12] LABS: Chloride 113 mmol/L (98-107); Potassium 3.5 mmol/L (3.5-5.1); Sodium 142 mmol/L (136-145)
[2023-09-11 10:13] LABS: Anion Gap 8 (5-15); Carbon Dioxide 21 mmol/L (20-30); Eosinophils # (auto) 0.1 10 ^3/uL (0-0.8); Eosinophils % (auto) 1.3 % (0.0-7.0); Hemoglobin 10.4 g/dL (13.5-17.5); Lymphocytes # (auto) 3.2 10 ^3/uL (0.4-5.4); Mean Corpuscular Hemoglobin 21.9 pg (28.0-32.0); Monocytes # (auto) 0.6 10 ^3/uL (0-1.3); Neutrophils # (auto) 2.3 10 ^3/uL (1.6-8.6); White Blood Cell 6.3 10^3/uL (4.4-10.8)
[2023-09-11 10:17] LABS: Basophils # (auto) 0 10 ^3/uL (0-0.2); Basophils % (auto) 0.5 % (0.0-2.0); Hematocrit 34.9 % (41.0-53.0); Mean Corpuscular Hgb Conc. 29.7 g/dL (32.0-36.0); Mean Corpuscular Volume 73.8 fL (80.0-100.0); Monocytes % (auto) 9.9 % (0.0-12.0); Neutrophils % (auto) 37.3 % (37.0-80.0); Nucleated Red Blood Cells % 0.2 %; Red Blood Cells 4.73 10^6/uL (4.5-5.90)
[2023-09-11 10:18] LABS: BUN/Creatinine Ratio 13.9 (10.0-20.0); Blood Urea Nitrogen 14 mg/dL (9-23); Glucose 87 mg/dL (74-106)
[2023-09-11 10:52] LABS: Red Cell Distribution Width 20.5 % (11.8-14.3)
[2023-09-11] MEDS ORDERED: fentaNYL CITRATE 100 MCG/2 ML VL ONE ×2 (12:51→13:24)
[2023-09-11] MEDS ORDERED: SODIUM CHLORIDE LOCK 10 ML ONE (12:51)
[2023-09-11] MEDS ORDERED: MIDAZOLAM HCL 5 MG/ML-1ML VIAL ONE (12:51)
[2023-09-11] MEDS ORDERED: diphenhdrAMINE HCL 50 MG/1 ML VL ONE (12:51)
[2023-09-11] MEDS ORDERED: MIDAZOLAM HCL 2MG/2ML 2ml VIAL (1mg/ml) ONE (13:24)
[2023-09-11] MEDS ORDERED: MEPERIDINE HCL (25 MG/ML) 1ML VIAL ONE (13:24)
[2023-09-11] MEDS ORDERED: PROPOFOL 10 MG/ML 20 ML IV ONE (13:44)
[2023-09-11] MEDS ORDERED: LISI30TA8 PO (14:27)
[2023-09-11] MEDS ORDERED: ERGO1CAP23 PO (14:40)
[2023-09-11] MEDS: SUCRALFATE 1 GM/10 ML ORAL SUSP PO SCH (16:26)
[2023-09-11] MEDS ORDERED: SUCR1SUS26 PO (16:44)
[2023-09-11] MEDS ORDERED: PANT40T PO (16:44)
[2023-09-11] MEDS ORDERED: PANTOPRAZOLE 40 MG TAB PO SCH (22:00)
== END 2023-09-11 18:05 | disposition home health service (06) | DRG 379 ==
LOC: ER 09:36 → TELE 17:47 → TELE-EAST 21:59
PROVIDERS: ADMIT Internal Medicine; ATTEND Internal Medicine
PROC: 0DB68ZX Excision of Stomach, Via Natural or Artificial Opening Endoscopic, Diagnostic (ICD-10-PCS; 2023-09-11)
PROC: 0DJD8ZZ Inspection of Lower Intestinal Tract, Via Natural or Artificial Opening Endoscopic (ICD-10-PCS; 2023-09-11)
PROC: 30233N1 Transfusion of Nonautologous Red Blood Cells into Peripheral Vein, Percutaneous Approach (ICD-10-PCS; 2023-09-11)
PROC: 0DB98ZX Excision of Duodenum, Via Natural or Artificial Opening Endoscopic, Diagnostic (ICD-10-PCS; principal; 2023-09-11 13:21)
DX: K25.4 Chronic or unspecified gastric ulcer with hemorrhage (principal); K21.9 Gastro-esophageal reflux disease without esophagitis; E78.5 Hyperlipidemia, unspecified; I10 Essential (primary) hypertension; E11.9 Type 2 diabetes mellitus without complications; D64.9 Anemia, unspecified; E87.6 Hypokalemia; K29.71 Gastritis, unspecified, with bleeding; I16.0 Hypertensive urgency; K64.8 Other hemorrhoids; Z79.899 Other long term (current) drug therapy; Z83.3 Family history of diabetes mellitus
CPT/HCPCS: 36415; 43239; 45378; 71045; 74176; 80048; 80053; 81001; 82962; 83690; 85025; 85610; 85730; 86850; 86900; 86901; 86920; 96361; 96374; 96375; C9113; G0378; J2250; J2704